=== PATIENT | female | born 1990 | race African-American/Black ===

== ENCOUNTER 2019-02-08 07:59 | Emergency (ER) | payer OTHER ==
[~2019-02-08] VITALS: Ht 167.6 cm; Wt 72.3 kg
[2019-02-08] MEDS ORDERED: CETI10TA59 PO (08:05)
[2019-02-08 09:15] VITALS: BP 122/79
== END 2019-02-08 09:37 | disposition home or self-care (01) ==
LOC: EMS 08:04
DX: M25.561 Pain in right knee (principal)